=== PATIENT | female | born 1980 | race Caucasian/White ===

== ENCOUNTER 2018-01-01 14:46 | Emergency (ER) | payer OTHER ==
[~2018-01-01] VITALS: Ht 167.6 cm; Wt 125.0 kg
[~2018-01-01 14:46] MED LIST: AMOXICILLIN875 MG PO; CIPROFLOXACN500 MG PO; DOXYCYCL HYC100 MG PO; GLIPIZIDE XL5 MG PO; KEFLEX500 M1 PO; LEVOTHYROXIN100 MC1 PO; MIGRAINE PILL; MOTRIN600 MG/TAB PO; PYRIDIUM200 MG PO
[2018-01-01 15:54] LABS: URINE BILIRUBIN - DIPSTICK NEGATIVE (NEGATIVE); URINE BLOOD DIPSTICK MODERATE (NEGATIVE); URINE COLOR YELLOW; URINE GLUCOSE - DIPSTICK NEGATIVE (NEGATIVE); URINE KETONE NEGATIVE (NEGATIVE); URINE LEUK ESTERASE NEGATIVE (NEGATIVE); URINE NITRITE - DIPSTICK NEGATIVE (Negative); URINE PH 5.5 (4.5-8.0); URINE PROTEIN - DIPSTICK NEGATIVE (NEG-TRACE); URINE SPECIFIC GRAVITY >=1.030; URINE UROBILINOGEN - DIPSTICK 0.2 E.U./dL (0.2)
[2018-01-01 15:55] LABS: URINE CLARITY CLEAR
[2018-01-01 16:02] LABS: URINE SQUAMOUS EPITHELIAL CELL FEW EPI/hpf (0-FEW); URINE WBC 0-2 WBC/hpf (0-5)
[2018-01-01 16:11] VITALS: BP 151/76
== END 2018-01-01 16:14 | disposition home or self-care (01) ==
LOC: ED 14:46
PROVIDERS: Family Medicine
DX: R10.2 Pelvic and perineal pain (principal); S30.814A Abrasion of vagina and vulva, initial encounter